=== PATIENT | female | born 1985 | race African-American/Black ===

== ENCOUNTER 2023-11-25 12:00 | Emergency (ER) | payer SELFPAY ==
[2023-11-25 12:08] VITALS: BP 123/84
--- NOTE | 2023-11-25 13:08 | ED.GENMED ---
History of Present Illness
General
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
Source: patient and family (sister at bedside. 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
Exam Limitations: none
Time Seen by Provider: 11/25/23 13:07
Nursing documentation reviewed up to this point in time: agreed with
History of Present Illness
History of Present Illness:
38 yo female new to this country, speaks only [place]e Creole states her uterus is falling out. This has bee for past 6 months. She has no PMHX, is healthy. Denies being sexually active, never , denies vaginal D/C or bleeding LMP 10 days ago.
Denies abdominal pain or vaginal pain.
Past History
Past History
ED Past Medical History: None
ED Past Surgical History: None
Social History
Tobacco: Non-smoker
Alcohol: None
Personal: Single
Living: with family
Review of Systems
Review of Systems
Allergies reviewed?: Yes
All Other Systems: ROS reviewed and negative except as documented in HPI and ROS
Constitutional: Denies fever
ABD/GI: Denies abdominal pain
: Reports other (uterus is slightly out of vagina); Denies dysuria, frequency, incontinence, difficulty voiding, urgency, bleeding or discharge
Skin: Reports no symptoms
Phy Exam
Physical Exam
Physical Exam:
GENERAL: No acute distress. A&Ox3.
CONSTITUTIONAL: Afebrile.
RESPIRATORY: Regular respirations, nonlabored, lungs clear.
CARDIOVASCULAR: Regular rate and rhythm, no murmurs, no rubs.
GI: Soft, nontender, normal
: uterus prolapsed to 2 inches outside vagina. Easily reduced. Runn[place], healthy appearing, no discharge or bleeding.
MUSCULOSKELETAL: Moves with ease. Well perfused.
SKIN: Warm, dry, normal
PSYCH: Normal mood and affect. Well kept, interactive and appropriate
NEUROLOGIC: Awake, alert and oriented. No focal neurological deficits
Course
Vital Signs
Initial and Last Documented VS:
Initial Vital Signs
Temp Pulse Resp BP Pulse Ox
98.5 F 97 18 123/84 100
11/25/23 12:08 11/25/23 12:08 11/25/23 12:08 11/25/23 12:08 11/25/23 12:08
Last Documented Vital Signs
Temp Pulse Resp BP Pulse Ox
98.5 F 97 18 123/84 100
11/25/23 12:08 11/25/23 12:08 11/25/23 12:08 11/25/23 12:08 11/25/23 12:08
MDM/Problems Addressed
MDM/Problems Addressed:
38 yo female new to this country, speaks only Nepalese Creole states her uterus is falling out. This has bee for past 6 months. She has no PMHX, is healthy. Denies being sexually active, never , denies vaginal D/C or bleeding LMP 10 days ago.
Denies abdominal pain or vaginal pain.
NAD
Pt exam unremarkable save for a very healthy looking, pink, non swollen, no sign of infection, no lesions prolapsed uterus that was easily reduced
Consulted Dr. Springer, who states she can be fitted for pessary in office only, not in hospital. His first available appt. is 12/31.
Pt and sister state they cannot make that appt, they are moving to [place] very soon
They will seek [facility] care there
*Critical Care Note
Total Time (30-74mins, 75-104mins- exclusive of procedures): Not Applicable
ED Attending Note
-
Portions of this chart may have been created with voice recognition software.� Occasional wrong word or��sound alike� substitutions may have occurred due to the inherent limitations of voice recognition software.
Discharge Plan
Departure
Patient Disposition: Home (Routine Discharge)
Date of Disposition: 11/25/23
Time of Disposition: 13:52
Patient with high blood pressure during this ER visit?: No
Condition: Good
Discharge Problem:
Prolapse of uterus
Instructions: Pelvic organ prolapse
Referrals:
NONE,* [Family Provider] -
Activity Restrictions/Additional Instructions:
As we discussed, you need to see a [employer] doctor to be fitted for a pessary.
Our [employer] doctor is willing to see you at his next open appointment on December 31 at 9 a.m.
If you move to [place], find a [employer] doctor who will fit you for a pessary. in the meantime, just push it back in as you have been doing and I did.
Interventions
Interventions:
*Risk Screen - Suicide Last Done: 11/25/23 14:15
*General Assessment Last Done: 11/25/23 14:15
*Neglect/Abuse Screening Last Done: 11/25/23 14:15
*ED COVID-19 Vaccine History Last Done: 11/25/23 14:15
*Nursing Disposition Last Done: 11/25/23 14:53
ED-Female Genitourinary Assessment Last Done: 11/25/23 14:51
Discharge Date and Time
Discharge Date/Time: 11/25/23 14:15
Print Language: LITHUANIAN
== END 2023-11-25 14:15 | disposition home or self-care (01) ==
LOC: EMR 12:00
PROVIDERS: EMERGENCY PHYSICIAN Emergency Medicine
DX: N81.4 Uterovaginal prolapse, unspecified (principal)
CPT/HCPCS: 99283